=== PATIENT | male | born 1995 | race Caucasian/White ===

== ENCOUNTER 2018-12-19 23:58 | Emergency (ER) | payer SELFPAY ==
[2018-12-20 00:11] VITALS: BP 132/78
--- NOTE | 2018-12-20 00:30 | EDM.PDOC ---
ED HPI GENERAL MEDICAL PROBLEM - General Chief Complaint: Abdominal Pain Stated Complaint: ABDOMINAL PAIN Time Seen by Provider: 12/20/18 00:20 - History of Present Illness INITIAL COMMENTS - FREE TEXT/NARRATIVE: 23-year-old male presents to the emergency room with abdominal pain. This pain has been going on for about 3 days. It is not worsening. It seems to be worsened by eating and then the pain will occur on for a couple of hours there is no specific type of food that makes it worse he denies any nausea vomiting or diarrhea he has a daily BM but it doesn't feel like he's completely emptied. He has not had any associated fevers or chills. He has no burning or frequency with urination. He is not experiencing any back pain. Right Lower Abdomen Pain Score (Numeric/FACES): 4 - Related Data Allergies Allergy/AdvReac Type Severity Reaction Status Date / Time No Known Allergies Allergy Verified 12/20/18 00:10 Home Meds: Home Meds . [No Known Home Meds] 12/20/18 [History] Past Medical History - Past Health History Medical/Surgical History: Denies Medical/Surgical History Social & Family History - Tobacco Use Smoking Status *Q: Current Every Day Smoker Years of Tobacco use: 2 Packs/Tins Daily: 0.7 - Caffeine Use Caffeine Use: Reports: Coffee - Recreational Drug Use Recreational Drug Use: No ED ROS GENERAL - Review of Systems Review Of Systems: See Below Constitutional: Reports: No Symptoms. Denies: Fever, Chills HEENT: Reports: No Symptoms Respiratory: Reports: No Symptoms Cardiovascular: Reports: No Symptoms GI/Abdominal: Reports: Abdominal Pain. Denies: Diarrhea, Nausea, Vomiting : Reports: No Symptoms Musculoskeletal: Reports: No Symptoms Skin: Reports: No Symptoms ED EXAM, GI/ABD - Physical Exam Exam: See Below Exam Limited By: No Limitations General Appearance: Alert, No Apparent Distress Head: Atraumatic, Normocephalic Neck: Normal Inspection, Supple, Non-Tender, Full Range of Motion. No: Lymphadenopathy (L), Lymphadenopathy (R) Respiratory/Chest: No Respiratory Distress, Lungs Clear, Normal Breath Sounds Cardiovascular: Regular Rate, Rhythm, No Edema, No Murmur GI/Abdominal Exam: Normal Bowel Sounds, Soft, Other (His tenderness seems to be actually a little bit worse on the left side with palpation milder on the right no rebound or guarding noted). No: Distended, Guarding, Rigid, Rebound Course - Vital Signs Last Recorded V/S: Last Vital Signs Temp 36.4 C 12/20/18 00:08 Pulse 79 12/20/18 00:08 Resp 16 12/20/18 00:08 BP 132/78 12/20/18 00:08 Pulse Ox 99 12/20/18 00:08 - Orders/Labs/Meds Orders: Active Orders 24 hr Category Date Time Status Abdomen 2V AP Flat Upright [CR] Stat Exams 12/20/18 00:30 Taken Labs: Laboratory Tests 12/20/18 12/20/18 12/20/18 Range/Units 00:40 00:40 00:46 WBC 8.06 (4.23-9.07) K/mm3 RBC 5.46 (4.63-6.08) M/mm3 Hgb 15.5 (13.7-17.5) gm/L Hct 45.4 (40.1-51.0) % MCV 83.2 (79.0-92.2) fl MCH 28.4 (25.7-32.2) pg MCHC 34.1 (32.2-35.5) g/dl RDW Std Deviation 41.3 (35.1-43.9) fL Plt Count 300 (163-337) K/mm3 MPV 9.6 (9.4-12.3) fl Neutrophils % (Manual) 46 (40-60) % Band Neutrophils % 0 (0-10) % Lymphocytes % (Manual) 43 H (20-40) % Atypical Lymphs % 0 % Monocytes % (Manual) 7 (2-10) % Eosinophils % (Manual) 3 (0.8-7.0) % Basophils % (Manual) 1 (0.2-1.2) Platelet Estimate Adequate Plt Morphology Comment Normal RBC Morph Comment Normal Sodium 143 (136-145) mEq/L Potassium 4.2 (3.5-5.1) mEq/L Chloride 105 (98-107) mEq/L Carbon Dioxide 30 (21-32) mEq/L Anion Gap 12.2 (5-15) BUN 13 (7-18) mg/dL Creatinine 1.0 (0.7-1.3) mg/dL Est Cr Clr Drug Dosing 113.91 mL/min Estimated GFR (MDRD) > 60 (>60) mL/min BUN/Creatinine Ratio 13.0 L (14-18) Glucose 103 (74-106) mg/dL Calcium 9.4 (8.5-10.1) mg/dL Total Bilirubin 0.3 (0.2-1.0) mg/dL AST 37 (15-37) U/L ALT 98 H (16-63) U/L Alkaline Phosphatase 46 (46-116) U/L C-Reactive Protein < 0.2 (<1.0) mg/dL Total Protein 7.6 (6.4-8.2) g/dl Albumin 4.1 (3.4-5.0) g/dl Globulin 3.5 gm/dL Albumin/Globulin Ratio 1.2 (1-2) Urine Color Yellow (Yellow) Urine Appearance Clear (Clear) Urine pH 7.0 (5.0-8.0) Ur Specific [place] 1.025 (1.005-1.030) Urine Protein Negative (Negative) Urine Glucose (UA) Negative (Negative) Urine Ketones Negative (Negative) Urine Occult Blood Negative (Negative) Urine Nitrite Negative (Negative) Urine Bilirubin Negative (Negative) Urine Urobilinogen 0.2 (0.2-1.0) Ur Leukocyte Esterase Negative (Negative) Urine RBC 0-5 (0-5) /hpf Urine WBC Not seen (0-5) /hpf Ur Epithelial Cells 0-5 (0-5) /hpf Urine Bacteria Not seen (FEW) /hpf Urine Mucus Few (FEW) /hpf - Re-Assessments/Exams Free Text/Narrative Re-Assessment/Exam: 12/20/18 01:49 Abdominal x-rays showed nothing acute he's got a increased stool pattern on the right side and slightly into the transverse colon. Laboratory evaluation is basically within normal limits his ALTs slightly elevated at 98 urinalysis is unrevealing Departure - Departure Time of Disposition: 01:50 Disposition: Home, Self-Care 01 Clinical Impression: Abdominal pain of unknown etiology - Discharge Information Referrals: PCP,None [Primary Care Provider] - Forms: ED Department Discharge Additional Instructions: Return to the emergency room with any questions problems or worsening symptoms return in 24 hours if not improving. Sooner if getting worse. Try 1 or 2 bottles of magnesium citrate 4 hours apart and see if this helps. In the next month or so establish with a regular physician and have him recheck your liver enzymes. Quit smoking - My Orders Last 24 Hours: My Active Orders 12/20/18 00:30 Abdomen 2V AP Flat Upright [CR] Stat - Assessment/Plan Last 24 Hours: My Active Orders 12/20/18 00:30 Abdomen 2V AP Flat Upright [CR] Stat
--- NOTE | 2018-12-20 10:18 | CR ---
Abdomen: Supine and upright views of the abdomen were obtained. Comparison: No previous study. Bowel gas pattern appears normal. Minimal calcification is seen within the left pelvis believed to be incidental. No other abnormal calcifications are seen. Bony structures are unremarkable. No free air is seen. Impression: 1. Incidental finding. Nothing acute is seen on two-view abdominal x-ray. Diagnostic code #2
== END 2018-12-20 02:00 | disposition home or self-care (01) ==
LOC: JD.ED 23:58
DX: R10.9 Unspecified abdominal pain (principal); F17.210 Nicotine dependence, cigarettes, uncomplicated
CPT/HCPCS: 36415; 74019; 74019-26; 80053; 81001; 85007; 85027; 86140; 99282; 99284